=== PATIENT | female | born 1995 | race Caucasian/White ===

== ENCOUNTER 2018-05-18 08:12 | Emergency (ER) | payer BC ==
[~2018-05-18] VITALS: Ht 165.1 cm; Wt 63.5 kg
[2018-05-18 08:24] VITALS: BP_SYST 100
--- NOTE | 2018-05-18 08:34 | NUR ---
Placed in room 5. To gown for exam. Side rails up.
--- NOTE | 2018-05-18 09:00 | NUR ---
Pt presents to ER after reportedly having 2 syncopal episodes last night. First episode occurred after going from a sitting to standing position. Pt was assisted from from floor to a sitting position on chair when she had 2nd syncopal episode. Pt reports hx of cocaine use, reports last using cocaine about a week ago; pt also states she had drank a "sip" of alcohol last night. Upon arrival to ER, pt denies any pain, denies chest pain or sob but does state she had an episode of chest pain "last week". Pt only current complaint is general weakness. Pt AOX4, speaking full sentences, respirations even and unlabored.
--- NOTE | 2018-05-18 09:20 | NUR ---
ER at bedside examining patient.
--- NOTE | 2018-05-18 09:30 | NUR ---
[employer] reporting form filled out and faxed to [employer] per request by Dr. Stoner.
[2018-05-18 09:35] VITALS: BP_SYST 100
--- NOTE | 2018-05-18 09:35 | NUR ---
Patient given written and verbal discharge instructions and verbalizes understanding. ER MD discussed with patient the results and treatment provided. Patient in stable condition. ID arm band removed. No Rx given. Patient educated on pain management and to follow up with PMD. Pain Scale 0/10. Opportunity for questions provided and answered. Medication side effect fact sheet provided.
== END 2018-05-18 09:35 | disposition home or self-care (01) ==
LOC: SED 08:12
DX: R55 Syncope and collapse (principal); F17.200 Nicotine dependence, unspecified, uncomplicated
CPT/HCPCS: 93005; 99283